=== PATIENT | male | born 1995 | race African-American/Black ===

== ENCOUNTER 2024-08-02 14:07 | Emergency (ER) | payer OTHER, SELFPAY ==
[2024-08-02 14:10] VITALS: PULSE 130; RESP 18; O2SAT 98; BMI 17.7
[2024-08-02 14:14] VITALS: BP 103/70; PULSE 120; RESP 18; TEMP 36.9; O2SAT 93
[2024-08-02 14:15] VITALS: BMI 21.9
--- NOTE | 2024-08-02 14:34 | EKG_ITS ---
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
--- NOTE | 2024-08-02 14:36 | XR_ITS ---
Examination: CT brain head without contrast. 2-D sagittal coronal reconstructions Date and time of exam:August 02, 2024 1533 hours INDICATIONS: Seizures today CTDI: vol (mGy):50.1 DLP: (mGycm):1013 Technique: Multiple CT axial sections of the brain have been obtained, 5 mm slice thickness. Contrast has not been administered. 2-D sagittal, coronal reconstructions have been obtained Low dose protocols were performed. One or more of the following dose reduction techniques were used; automated exposure control, adjustment of the mA and/or KV according to patient size, use of iterative reconstruction technique. Findings: No significant ventricular enlargement. Intra-axial or extra-axial hemorrhage density is not seen. No mass effect or midline shift Basal cisterns are not remarkable. Fourth ventricle is midline. Cranial vault intact. Significant chronic sphenoid sinusitis Impression: Negative for acute hemorrhage, mass effect or midline shift Consider elective brain MRI follow-up, pre and postcontrast, seizure protocol
--- NOTE | 2024-08-02 14:38 | XR_ITS ---
Examination: AP chest single view Technique one AP upright portable chest single view Date and time: August 02, 2024 1501 hours INDICATIONS: Seizure today. FINDINGS: Normal heart size No aspiration pneumonia. Old deformity right clavicle IMPRESSION: Negative for aspiration pneumonia
--- NOTE | 2024-08-02 14:47 | PD.EDSEIZ ---
ED Seizures RME/HPI General Chief Complaint: Seizure Stated Complaint: SEIZURES Time Seen by Provider: 08/02/24 14:26 Arrival date/time: 08/02/24 14:07 RME / HPI RME / HPI Narrative: The patient is a 28-year-old male with significant past medical history of schizo-affective disorder and autism, with history of seizure disorder on depakote that was discontinued about 1.5 months ago for abnormal blood work was brought in to the ED by [facility] officers after being found to have witnessed seizure. As per the [facility] staff, the patient was seizing entire his body, but did not hit his head to ground, or had any urinary or bowel incontinence. He denied any tongue bite. He was currently at his baseline, only aware of his name, and interacts with [facility] members. He denied any headache, nausea or vomiting, abdominal pain, any changes in bowel or bladder symptoms, leg swelling, palpitations, fever or chills. Related Data Allergies Allergy/AdvReac Type Severity Reaction Status Date / Time diphenhydramine Allergy Verified 08/02/24 15:30 haloperidol Allergy Verified 08/02/24 15:30 Sulfa (Sulfonamide Allergy Verified 08/02/24 15:30 Antibiotics) Review of Systems Review of Systems Systems Reviewed: All systems reviewed, normal except as documented (Above) ED Exam Narrative Physical exam: General: No acute distress, Alert and Oriented x person only, at his baseline, interacting well HEENT: Moist mucous membranes, oropharynx clear Neck: Supple, No masses, No JVD CVS: S1S2 Regular rate and rhythm, No murmurs, rubs or gallops Lungs: Clear to auscultation with no accessory use, no wheeze no rhonchi Abd: Soft, NT/ND, +BS, no organomegaly Ext: No edema, warm and well perfused Skin: No rash Psych: Appropriate mood and affect Course Quality Measures none Orders Category Date Time Status Marine Meteorologist STAT Care 08/02/24 14:35 Active EKG (ED ONLY) *Do not use* NOW Care 08/02/24 14:35 Completed Insert IV STAT Care 08/02/24 14:[address] head/brain wo con Stat Exams 08/02/24 14:36 Completed EKG (ED Only) Stat Exams 08/02/24 14:34 Ordered XR chest 1V portable Stat Exams 08/02/24 14:38 Completed CBC Stat Lab 08/02/24 14:45 Completed CK [Creatine Kinase] Stat Lab 08/02/24 14:45 Completed Comprehensive Metabolic Panel Stat Lab 08/02/24 14:45 Completed Drug Screen,Urine Stat Lab 08/02/24 14:46 Ordered Magnesium [Magnesium] Stat Lab 08/02/24 14:45 Completed Phosphorous Stat Lab 08/02/24 14:45 Completed Prothrombin Time with INR Stat Lab 08/02/24 14:45 Completed Urinalysis Stat Lab 08/02/24 14:36 Ordered Vital Signs Vital signs: Vital Signs Temperature 98.4 F 08/02/24 14:14 Pulse Rate 120 H 08/02/24 14:14 Respiratory Rate 18 08/02/24 14:14 Blood Pressure 103/70 08/02/24 14:14 Pulse Oximetry (%) 93 L 08/02/24 14:14 Oxygen Delivery Method Room Air 08/02/24 14:14 Seizure MDM Narrative MDM Narrative:: The patient is a 28-year-old male with significant past medical history of schizo-affective disorder and autism, with history of seizure disorder on depakote that was discontinued about 1.5 months ago for abnormal blood work was brought in to the ED by [facility] officers after being found to have witnessed seizure. As per the [facility] staff, the patient was seizing entire his body, but did not hit his head to ground, or had any urinary or bowel incontinence. He denied any tongue bite. He was currently at his baseline, only aware of his name, and interacts with [facility] members. He denied any headache, nausea or vomiting, abdominal pain, any changes in bowel or bladder symptoms, leg swelling, palpitations, fever or chills. Vitals were BP 103/70, pulse 120, RR 18, temperature 98.4, saturating 93% on room air. Fingerstick blood sugar was 92, white count 5.5, hemoglobin 12.0, RDW 48.5, platelet count 108, chemistry panel revealed sodium 143, potassium 4.1, chloride 111, creatinine 1.0, blood sugar 215, corrected calcium 9.1, phosphorus 2.6, magnesium 2.1, liver enzymes WNL, and chest x-ray was negative for pneumonia. EKG revealed sinus rhythm with possible IVCD. Head CT was negative for Acute hemorrhage, mass effect or midline shift. The patient was discharged back to [facility] with recommendations to be followed up with neurologist as an outpatient. 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 Social determinants that could affect healthcare access:: mental health Patient has the following chronic illnesses:: See above How is presenting disease/condition affected by chronic disease/condition?: exacerbated by Evaluation data The following diagnostics were reviewed and interpreted by me:: lab results, radiology exam(s) and EKG tracing(s) Lab and/or radiology exams considered but not ordered:: None Interpretation Summary: See above Medications / Prescriptions Medications or Prescriptions considered but not ordered:: None Medication administrations:: None Consultations Consultation(s) initiated? (list below): No Diagnosis Seizure Differential Diagnosis: intractable seizure disorder, focal seizure and generalized seizure Most likely diagnosis given after review of the tests above:: Generalized seizure Admission Indicated Admission indicated?: not indicated Admission Request Was there a request for admission?: No Disposition Plan Disposition Plan: Discharge Discharge Attestation Discharge Attestation: The patient and all family members were given an opportunity to ask questions and understood the discharge instructions. Discharge instructions specifically effects, indications for sooner follow up or return to the emergency department, and the expected course of current diagnosis. Patient condition: Stable Discharge Plan Plan Patient Disposition: HOME (Self Care) Prescriptions/Referrals Referrals: No Primary/Family,Physician [Primary Care Provider] - In 1 week Problem List Clinical Impression: Generalized seizure Patient/Caregiver Discharge Instructions Discharge Activity: activity as tolerated Education Materials: ED Seizure, Recurrent (Adult) Additional Instructions: Please follow-up with your PCP within 1 week of discharge Please follow-up with your neurologist within 2 to 3 days of discharge. Continue taking all other medicines as prescribed -Recommended to return back to emergency department if your symptoms persists or worsens Print Language: Mongolian Stand Alone Forms: [employer] Award Info., Patient Portal Info Letter
[2024-08-02 14:59] VITALS: PULSE 105
[2024-08-02 15:05] LABS: Basophils % (Auto) 1 % (0-2.5); Eosinophils # (Auto) 0.1 Thou/mm3 (0.0-0.5); Eosinophils % (Auto) 1 % (0-10); Hematocrit 33.7 % (41.0-53.0); Immature Granulocytes % (Auto) 0 % (0-0); Immature Granulocytes Auto 0.02 Thou/mm3 (0.00-0.00); Lymphocytes # (Auto) 1.5 Thou/mm3 (1.0-4.8); Lymphocytes % (Auto) 28 % (10-50); Mean Corpuscular HGB Conc 35.6 g/dl (31.0-37.0); Mean Corpuscular Hemoglobin 32.9 pg (25.0-35.0); Mean Corpuscular Volume 92 fL (80-100); Monocytes # (Auto) 0.5 Thou/mm3 (0.0-0.8); Monocytes % (Auto) 10 % (0-12); Neutrophils # (Auto) 3.3 Thou/mm3 (1.8-7.7); Neutrophils % (Auto) 60 % (37-80); Nucleated Red Blood Cell % 0 /100 WBC (0); Platelet Count 108 Thou/mm3 (140-440); RDW Standard Deviation 48.5 fL (35.1-43.9); Red Blood Count 3.65 Miln/mm3 (4.50-5.90); White Blood Count 5.5 Thou/mm3 (3.8-10.6)
[2024-08-02 15:17] LABS: Prothrombin Time 11.4 Seconds (9.0-12.2)
[2024-08-02 15:21] LABS: Alanine Aminotransferase 22 U/L (10-49); Albumin, Serum 3.9 gm/dL (3.5-5.0); Albumin/Globulin Ratio 1.7 (1.2-2.2); Alkaline Phosphatase 67 U/L (46-116); Anion Gap 9 (7-16); Aspartate Amino Transferase 22 U/L (0-34); BUN/Creatinine Ratio 12 Ratio (12-20); Bilirubin,Total 0.4 mg/dL (0.3-1.2); Blood Urea Nitrogen 12 mg/dL (9-23); Calcium (Corrected) 9.1 mg/dL (8.5-10.1); Carbon Dioxide 22.8 mMol/L (20.0-31.0); Chloride 111 mMol/L (98-107); Creatine Kinase 68 U/L (34-171); Estimated Creatinine Clearance 97.9 mL/min (>60); Globulin 2.3 gm/dL (2.3-3.5); Glucose 115 mg/dL (74-106); Magnesium 2.1 mg/dL (1.6-2.6); Osmolality,Calculated 285 (275-295); Phosphorous 2.6 mg/dL (2.4-5.1); Potassium 4.1 mMol/L (3.4-5.1); Sodium 143 mMol/L (136-145); Total Protein 6.2 gm/dL (5.7-8.2); eGFR > 60 See Note
[2024-08-02 16:32] VITALS: BP 111/72; PULSE 101; RESP 16; TEMP 36.7; O2SAT 94
== END 2024-08-02 16:23 | disposition home or self-care (01) ==
PROVIDERS: Student in an Organized Health Care Education/Training Program; Emergency Provider Family Medicine
DX: R56.9 Unspecified convulsions (principal); R94.31 Abnormal electrocardiogram [ECG] [EKG]
CPT/HCPCS: 36415; 70450; 71045; 80053; 80307; 81001; 82550; 83735; 84100; 85025; 85610; 93005; 99284

== ENCOUNTER 2024-08-03 12:29 | Emergency (ER) | payer OTHER, SELFPAY ==
[2024-08-03] VITALS (8 sets, daily range): BP systolic 107–128; BP diastolic 61–79; PULSE 112–115; RESP 18; TEMP 37; O2SAT 99–100; BMI 22.3
--- NOTE | 2024-08-03 12:38 | EKG_ITS ---
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
--- NOTE | 2024-08-03 12:39 | XR_ITS ---
Examination: CT brain head without contrast. 2-D sagittal coronal reconstructions Date and time of exam:August 03, 2024 1252 hours Comparison August 02, 2024 INDICATIONS: Patient fell today with injury to the head, head pain CTDI: vol (mGy):49.8 DLP: (mGycm):1016 Technique: Multiple CT axial sections of the brain have been obtained, 5 mm slice thickness. Contrast has not been administered. 2-D sagittal, coronal reconstructions have been obtained Low dose protocols were performed. One or more of the following dose reduction techniques were used; automated exposure control, adjustment of the mA and/or KV according to patient size, use of iterative reconstruction technique. Findings: No significant ventricular enlargement. Intra-axial or extra-axial hemorrhage density is not seen. No mass effect or midline shift Basal cisterns are not remarkable. Fourth ventricle is midline. Cranial vault intact. Impression: Negative for acute hemorrhage, mass effect or midline shift
--- NOTE | 2024-08-03 12:42 | XR_ITS ---
Examination: CT cervical spine without contrast 2-D sagittal reconstructions 2-D coronal reconstructions 3-D reconstructions. Exam date and time:August 03, 2024 1252 hours INDICATIONS: Patient fell today with injury to the neck, neck pain CTDI:vol (mGy) 9.12 DLP: (mGycm) 210 Technique: Multiple 2 mm axial sections of the cervical spine have been obtained. The coronal and sagittal reconstructions have been obtained. 3-D reconstructions have been obtained. Low dose protocols were performed. One or more of the following dose reduction techniques were used; automated exposure control, adjustment of the mA and/or KV according to patient size, use of iterative reconstruction technique. Findings: Axial sections demonstrate intact base of the skull. C1 exhibit satisfactory relationship to the odontoid. No acute cervical vertebral body fracture seen. Alignment posterior spinous processes satisfactory. Impression: No acute cervical fracture.
--- NOTE | 2024-08-03 12:46 | EDNOTE_ITS ---
ED Head Injury RME/HPI General Chief complaint: Head Injury Stated complaint: FALL Time Seen by Provider: 08/03/24 12:37 Arrival date/time: 08/03/24 12:29 RME / HPI RME / HPI Narrative: Patient is a 28-year-old male with significant past medical history Of schizo- affective disorder, seizure disorder and autism was brought into the ED with chief complaint of ground-level fall today. The patient was getting EEG done, but after that he reported getting mildly dizzy, and later was found on ground with bleeding site from his head above the forehead. 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 He says yes to everything. Related Data Previous Rx's ?Medication ?Instructions ?Recorded ibuprofen 400 mg tablet 400 mg PO Q8H PRN pain #10 t abs 08/03/24 Allergies Allergy/AdvReac Type Severity Reaction Status Date / Time diphenhydramine Allergy Verified 08/03/24 12:37 haloperidol Allergy Verified 08/03/24 12:37 Sulfa (Sulfonamide Allergy Verified 08/03/24 12:37 Antibiotics) Review of Systems Review of Systems ROS Unobtainable: unobtainable due to medical condition ED Exam Narrative Physical exam: General: No acute distress, Alert and Oriented x 3 HEENT: Moist mucous membranes, oropharynx clear, lacerated cut injury over left forehead maintaining sides about 3 cm Neck: Supple, No masses, No JVD CVS: S1S2 Regular rate and rhythm, No murmurs, rubs or gallops Lungs: Clear to auscultation with no accessory use, no wheeze no rhonchi Abd: Soft, NT/ND, +BS, no organomegaly Ext: No edema, warm and well perfused Skin: No rash Psych: Appropriate mood and affect Course Quality Measures none Orders Category Date Time Status Knot Cutter STAT Care 08/03/24 12:38 Active EKG (ED ONLY) *Do not use* NOW Care 08/03/24 12:38 Completed Insert IV STAT Care 08/03/24 12:38 Active Orthostatic Vitals STAT Care 08/03/24 12:[address] cervical spine wo con Stat Exams 08/03/24 12:[address] head/brain wo con Stat Exams 08/03/24 12:39 Taken EKG (ED Only) Stat Exams 08/03/24 12:38 Draft CBC Stat Lab 08/03/24 13:08 Completed Comprehensive Metabolic Panel Stat Lab 08/03/24 13:08 Completed Magnesium Stat Lab 08/03/24 13:08 Completed Phosphorous Stat Lab 08/03/24 13:08 Completed Lidocaine 1% 20 ml [Xylocaine 1% 20 ML] Med 08/03/24 12:58 Discontinued 10 ml IM X1 ONE Naph,Kp Mbdb [Neutra-Phos Pkt] Med 08/03/24 14:38 Discontinued 2 packet PO X1 ONE Sodium Chloride 0.9% 500 ml [Ns] 500 ml Med 08/03/24 12:38 Discontinued IV 999 mls/hr Oxygen Delivery NOW RT 08/03/24 12:38 Active Vital Signs Vital signs: Vital Signs Temperature 98.6 F 08/03/24 12:30 Pulse Rate 115 H 08/03/24 12:30 Respiratory Rate 18 08/03/24 12:30 Blood Pressure 115/79 08/03/24 12:30 Pulse Oximetry (%) 99 08/03/24 12:30 Oxygen Delivery Method Room Air 08/03/24 12:30 Head Injury MDM Narrative MDM Narrative:: Patient is a 28-year-old male with significant past medical history Of schizo- affective disorder, seizure disorder and autism was brought into the ED with chief complaint of ground-level fall today. The patient was getting EEG done, but after that he reported getting mildly dizzy, and later was found on ground with bleeding site from his head above the forehead. 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 He says yes to everything. Vitals were significant for BP 115/79, pulse 115, RR 18, temp 98.6, saturating 99% on room air. Labs revealed white count 11.5, hemoglobin 11.6, platelet 219, chloride 112, sodium 142, potassium 3.7, phosphorus 2.1, EKG revealed sinus tachycardia with nonspecific T wave abnormalities. Head CT was negative for acute hemorrhage, midline shift or mass effect, cervical spine CT negative for acute fracture as read by Dr. Abarca. The patient was given 500 cc IV bolus normal saline, placed 5 pio sutures over left forehead. The patient was planned to discharge home. Patient data External records reviewed:: [facility] previous records Clinical information provided by:: patient and validation software facilitator Social determinants that could affect healthcare access:: mental health Patient has the following chronic illnesses:: See above How is presenting disease/condition affected by chronic disease/condition?: exacerbated by Evaluation data The following diagnostics were reviewed and interpreted by me:: radiology exam(s) and EKG tracing(s) Lab and/or radiology exams considered but not ordered:: None Interpretation Summary: See above Medications / Prescriptions Medications or Prescriptions considered but not ordered:: None Medication administrations:: Medication Administration History Discontinued Medications Sodium Chloride (Ns) 500 mls @ 999 mls/hr IV .Q31M ONE Stop: 08/03/24 13:08 Last Infusion: 08/03/24 13:51 Dose: Infused Documented By: Admin: 08/03/24 13:20 Dose: 999 mls/hr Documented By: SHEKHAR Lidocaine HCl (Lidocaine Hcl 1% 20 Ml Vial) 10 ml IM X1 ONE Stop: 08/03/24 12:59 Last Admin: 08/03/24 13:19 Dose: 10 ml Documented By: SHEKHAR Potassium Phos/Sodium Phos (Naph,[facility] Mbdb 1 Packet (1.5 Gm)) 2 packet PO X1 ONE Stop: 08/03/24 14:39 See above Consultations Consultation(s) initiated? (list below): No Diagnosis Differential diagnosis head injury: concussion without loss of consciousness, epidural hematoma and closed head injury Most likely diagnosis given after review of the tests above:: Left forehead traumatic abrasion. Admission Indicated Admission indicated?: not indicated Admission Request Was there a request for admission?: No Disposition Plan Disposition Plan: Discharge Discharge Attestation Discharge Attestation: The patient and all family members were given an opportunity to ask questions and understood the discharge instructions. Discharge instructions specifically effects, indications for sooner follow up or return to the emergency department, and the expected course of current diagnosis. Patient condition: Stable Discharge Plan Plan Patient Disposition: HOME (Self Care) Prescriptions/Referrals Prescriptions/Med Rec: New ibuprofen 400 mg tablet 400 mg PO Q8H PRN (Reason: pain) Qty: 10 0RF Referrals: No Primary/Family,Physician [Primary Care Provider] - In 1 week Problem List Clinical Impression: Abrasion of head Patient/Caregiver Discharge Instructions Discharge Activity: activity as tolerated Education Materials: ED Head Injury (Adult) Additional Instructions: You were discharged by Dr. Villanueva with the following recommendations: Please follow-up with your PCP in 1 week of discharge, and get suture removed. You have been started on: -Ibuprofen 400 Mg up to 3 times a day Continue taking all other medicines as prescribed -Recommended to return back to emergency department if your symptoms persists or worsens Print Language: Cypriot Stand Alone Forms: [employer] Award Info., Patient Portal Info Letter
[2024-08-03] MEDS: LIDOCAINE HCL 1% 20 ML VIAL 10 ML IM (13:19)
[2024-08-03] MEDS: SODIUM CHLORIDE 0.9% 500 ML 500 ML 999 ML IV (13:20)
[2024-08-03 13:25] LABS: Basophils # (Auto) 0.1 Thou/mm3 (0.0-0.2); Basophils % (Auto) 1 % (0-2.5); Eosinophils % (Auto) 0 % (0-10); Hematocrit 32.8 % (41.0-53.0); Hemoglobin 11.6 g/dL (13.5-16.0); Immature Granulocytes % (Auto) 0 % (0-0); Immature Granulocytes Auto 0.04 Thou/mm3 (0.00-0.00); Lymphocytes # (Auto) 1.5 Thou/mm3 (1.0-4.8); Lymphocytes % (Auto) 13 % (10-50); Mean Corpuscular HGB Conc 35.4 g/dl (31.0-37.0); Mean Corpuscular Volume 93 fL (80-100); Monocytes # (Auto) 1.2 Thou/mm3 (0.0-0.8); Monocytes % (Auto) 10 % (0-12); Neutrophils # (Auto) 8.6 Thou/mm3 (1.8-7.7); Neutrophils % (Auto) 75 % (37-80); Nucleated Red Blood Cell % 0 /100 WBC (0); Platelet Count 119 Thou/mm3 (140-440); RDW Standard Deviation 48.4 fL (35.1-43.9); Red Blood Count 3.51 Miln/mm3 (4.50-5.90); White Blood Count 11.5 Thou/mm3 (3.8-10.6)
[2024-08-03 13:39] LABS: Alanine Aminotransferase 18 U/L (10-49); Albumin/Globulin Ratio 1.9 (1.2-2.2); Alkaline Phosphatase 63 U/L (46-116); Anion Gap 10 (7-16); Aspartate Amino Transferase 22 U/L (0-34); BUN/Creatinine Ratio 9 Ratio (12-20); Bilirubin,Total 0.7 mg/dL (0.3-1.2); Blood Urea Nitrogen 8 mg/dL (9-23); Calcium 8.7 mg/dL (8.3-10.6); Calcium (Corrected) 8.7 mg/dL (8.5-10.1); Carbon Dioxide 20.1 mMol/L (20.0-31.0); Chloride 112 mMol/L (98-107); Creatinine (Component) 0.9 mg/dL (0.6-1.3); Estimated Creatinine Clearance 124.3 mL/min (>60); Globulin 2.1 gm/dL (2.3-3.5); Glucose 96 mg/dL (74-106); Magnesium 1.9 mg/dL (1.6-2.6); Osmolality,Calculated 281 (275-295); Phosphorous 2.1 mg/dL (2.4-5.1); Potassium 3.7 mMol/L (3.4-5.1); Sodium 142 mMol/L (136-145); Total Protein 6.1 gm/dL (5.7-8.2); eGFR > 60 See Note
[2024-08-03] MEDS: NAPH,KPH MBDB 1 PACKET (1.5 GM) 2 PACKET PO (14:55)
== END 2024-08-03 14:45 | disposition home or self-care (01) ==
PROVIDERS: Emergency Provider Student in an Organized Health Care Education/Training Program
DX: S00.91XA Abrasion of unspecified part of head, initial encounter (principal); S19.9XXA Unspecified injury of neck, initial encounter; R00.0 Tachycardia, unspecified; W18.30XA Fall on same level, unspecified, initial encounter
CPT/HCPCS: 36415; 70450; 72125; 80053; 83735; 84100; 85025; 93005; 96360; 99284; J3490; J7040; A9270

== ENCOUNTER → 2024-09-06 | Outpatient (CLI) | payer MEDICAID, SELFPAY ==
--- NOTE | 2024-09-06 09:30 | XR_ITS ---
Examination: CT abdomen, without intravenous contrast. CT pelvis, without intravenous contrast. CT abdomen, with intravenous contrast. CT pelvis, with intravenous contrast. 2-D sagittal coronal reconstructions. Date and time of exam:September 06, 2024, 0937 hours INDICATIONS: Weight loss beginning one month ago CTDI: vol (mGy) 13.5 DLP: (mGycm) 816 Technique: Multiple 3.0 axial images of the abdomen and pelvis without intravenous contrast, 3.0 mm slice thickness. Multiple 3.0 postcontrast images abdomen and pelvis also obtained, post intravenous injection 60 cc [id number] 2-D sagittal and coronal reconstructions. Low dose protocols were performed. One or more of the following dose reduction techniques were used; automated exposure control, adjustment of the mA and/or KV according to patient size, use of iterative reconstruction technique. Findings: No focal liver or splenic lesion No gallstones No pancreatic or adrenal mass No renal or ureteral calculi, no hydronephrosis Abundant stool throughout the colon Normal appendix No bowel obstruction No diverticulitis Normal seminal vesicles No prostatomegaly Normal bladder Mild osteopenia IMPRESSION: No abdominal or pelvic mass
== END | disposition home or self-care (01) ==
PROVIDERS: Referring Provider Family Medicine; Visit Provider Family Medicine
DX: R13.12 Dysphagia, oropharyngeal phase (principal)
CPT/HCPCS: 74178; A4649; Q9967

== ENCOUNTER → 2024-10-26 | Outpatient (CLI) | payer MEDICAID, SELFPAY ==
--- NOTE | 2024-10-26 12:00 | XR_ITS ---
Examination: MRI of brain without intravenous contrast. MRI brain with intravenous contrast. Date and time of exam:October 29, 2024 1207 hours INDICATIONS: Seizure several years the most recent July 2024. Technique: Multiple axial and sagittal images of the brain to been obtained. Siemens high-resolution 1.52 Aviva short bore scanner utilized. Sagittal sections, T1 weighted images, TR 500, TE 14, are performed. Axial sections proton-density and T2-weighted images have been obtained. Inversion recovery axial images, TR 9260, TE 111, TR 2500. Diffusion weighted images, axial sections, TR 4800, TE 128, B value 1000. Axial sections, ADC map, TR 4800, TE 128. Axial and coronal images were also obtained post 13 cc gadolinium administered intravenously. Findings:: Enlargement of the sella turcica is not present. The optic chiasm and infundibular stalk are not remarkable. There is no localized enlargement of the medulla or major. Fourth ventricle and cerebellar tonsils appear normal in position. No subacute area of hemorrhage density is seen. Fourth ventricle is midline. Mass in the cerebellopontine angle region is not evident. 7th and 8th nerve complexes exhibit symmetry Globes are symmetrical Orbital musculature including medial lateral rectus muscles do not exhibit abnormality Increased white matter signal is evident, multiple punctate foci increased signal in the cerebral white matter Effacement of the cortical sulcal markings is not identified. Mass effect upon the ventricular system is not identified. Diffusion-weighted images demonstrate no focus of restricted diffusion Contrast images demonstrate no abnormal enhancement Impression: Multiple punctate foci increased signal in the cerebral white matter, demyelinating disease pattern
== END | disposition home or self-care (01) ==
LOC: SMRI 11:16
PROVIDERS: PCP Family Medicine; Referring Provider Family Medicine; Visit Provider Family Medicine
DX: R90.82 White matter disease, unspecified (principal)
CPT/HCPCS: 70553; A9577